=== PATIENT | male | born 1960 | race Two or more races ===

== ENCOUNTER 2018-01-30 13:37 | Outpatient (RCR) | payer MEDICARE, OTHER ==
[~2018-01-30 13:37] MED LIST: ASPIRIN-LOW81 MG ORAL; CARDURA4 MG ORAL; CITALOPRAM HBR10 M1 ORAL; COLACE100 MG/10 ORAL; COREG12.5 MG ORAL; DIABETA5 MG ORAL; EPOGEN2000 UNIT/ IJ; FERROUS SULFAT325 MG ORAL; MIRALAX17 GM PO; NEPHROVITE1 TAB ORAL; NORVASC10 MG ORAL; PRILOSEC40 MG ORAL; SIMVASTATIN20 MG ORAL; ZEMPLAR2 MCG/1 ML IV
== END 2018-02-21 | disposition home or self-care (01) ==
LOC: WCC 13:37
DX: E11.621 Type 2 diabetes mellitus with foot ulcer (principal); I12.0 Hypertensive chronic kidney disease with stage 5 chronic kidney disease or end stage renal disease; E11.22 Type 2 diabetes mellitus with diabetic chronic kidney disease; N18.6 End stage renal disease; Z79.82 Long term (current) use of aspirin
CPT/HCPCS: 15275; 82962; 87070; 87181; 87205; G0463; Q4133

== ENCOUNTER 2018-02-10 16:25 | Outpatient (CLI) | payer MEDICARE, OTHER ==
--- NOTE | 2018-02-11 12:25 | Diagnostic Imaging Report ---
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 There is chronic appearing deformity of the mid and distal fifth metatarsal. There is some chronic appearing periosteal thickening and a well-circumscribed ovoid central lucency which measures approximately 9 x 5 mm in diameter. Chronic appearing erosions are seen in the second and third metatarsal heads. No definite acute erosive changes are demonstrated. There is subtle slight irregularity of the medial cortex of the base of the second middle phalanx, although discrete fracture line is not demonstrated AP or oblique views. There is a dorsal lucency seen on the lateral view. On the oblique view, there is an angulation deformity of the second proximal phalanx, without definite fracture line. On the AP view, there is indistinctness of the cortex of the lateral base of the middle phalanx, and of the cortex of the lateral head of the proximal phalanx. There is suggestion of a small soft tissue ulcer immediately lateral to the proximal interphalangeal joint. Impression: Chronic appearing abnormality of the fifth metatarsal, likely on the basis of old osteomyelitis. Small central lucency likely represents a Yoshi's abscess Suggestion of cortical loss of the lateral aspect of the second proximal phalangeal head and second proximal phalangeal base, possible overlying ulcer. This could indicate osteomyelitis Slight deformity and irregularity of the second proximal and middle phalanges, raises concern for subtle fracture deformity of indeterminate age, possibly a pathologic fracture given the above findings. Correlate with clinical findings, consider MRI for further evaluation Postsurgical changes, as described Findings discussed by phone with Dr. Tobin at the time of interpretation
== END 2018-02-10 18:25 | disposition home or self-care (01) ==
LOC: RAD 16:25
DX: B99.9 Unspecified infectious disease (principal)

== ENCOUNTER 2018-02-19 13:33 | Outpatient (CLI) | payer MEDICARE, OTHER ==
--- NOTE | 2018-02-19 15:49 | Diagnostic Imaging Report ---
Indication: Second toe wound. Cellulitis and foot pain Technique: Right forefoot imaging utilizing multiplanar T1 fast spin-echo, proton and T2 fast spin-echo with fat saturation, and STIR. Comparison: Plain x-ray 02/10/2018 Findings: There is evidence of a cellulitis and infection involving the second toe with skin thickening, subcutaneous infiltration and edema. Bone marrow signal within the distal, middle and proximal phalanges show abnormal with abnormal low T1 and high T2 signal consistent with osteomyelitis. The osteomyelitis is probably subacute given presence of a heterogeneous intraosseous ovoid fluid focus probably Yoshi's abscess within the second proximal phalange. There is a rim of bright T1 penumbra noted along the posterior margin of the abscess. There is moderate periosteal reaction involving the second proximal phalange. There is evidence of a previous amputation at the head of the fifth metatarsal. The residual mid to distal aspect of the fifth metatarsal is abnormal with fairly marked, thickened cortical periostitis which is a sign of chronic inflammation or chronic osteomyelitis. Central to this there is a small ovoid intramedullary cystic focus measuring about 3 x 7 mm. The soft tissues surrounding the fifth metatarsal on the lateral part of the foot appears relatively normal. There is no subcutaneous edema. Amputations at the third and fourth metatarsophalangeal joints are noted. Remainder of the bones demonstrate normal signal. IMPRESSION: Evidence of acute to subacute osteomyelitis involving the proximal, middle and distal phalanges of the second ray. Small intraosseous fluid collection within the second proximal phalange likely Yoshi's abscess. Moderate second ray cellulitis. Chronic osteomyelitis involving the fifth metatarsal as described above. Status post amputations at the level of the fifth metatarsal head, third and fourth metatarsophalangeal joints.
== END 2018-02-19 15:33 | disposition home or self-care (01) ==
LOC: MRI 13:33
DX: M86.9 Osteomyelitis, unspecified (principal); Z89.421 Acquired absence of other right toe(s)

== ENCOUNTER 2018-02-23 09:35 | Outpatient (RCR) | payer MEDICARE, OTHER ==
[~2018-02-23] VITALS: Ht 167.6 cm; Wt 89.4 kg
[2018-03-12] MEDS ORDERED: Lidocaine HCl 2% Jelly 5ml Tube TOPIC ONE (12:00)
== END 2018-03-24 | disposition home or self-care (01) ==
LOC: WCC 09:35
DX: L97.514 Non-pressure chronic ulcer of other part of right foot with necrosis of bone (principal); E11.621 Type 2 diabetes mellitus with foot ulcer; Z89.421 Acquired absence of other right toe(s); E11.43 Type 2 diabetes mellitus with diabetic autonomic (poly)neuropathy; I12.0 Hypertensive chronic kidney disease with stage 5 chronic kidney disease or end stage renal disease; E11.22 Type 2 diabetes mellitus with diabetic chronic kidney disease; N18.6 End stage renal disease; Z94.4 Liver transplant status; Z79.82 Long term (current) use of aspirin
CPT/HCPCS: 82962; G0277; G0463

== ENCOUNTER 2018-02-23 15:30 | Outpatient (CLI) | payer MEDICARE, OTHER ==
--- NOTE | 2018-02-23 16:27 | Diagnostic Imaging Report ---
Indication: Cough Comparison: None 2 views of the chest obtained. Findings: Cardiomediastinal silhouette and pulmonary vascularity are within normal limits for age. The diaphragmatic contour is smooth and costophrenic angles are sharp. No pleural effusions are identified. The bones are unremarkable. Impression: No acute disease
== END 2018-02-23 17:30 | disposition home or self-care (01) ==
LOC: RAD 15:30
DX: R05 Cough (principal)
CPT/HCPCS: 71046

== ENCOUNTER 2018-04-28 10:21 | Outpatient (RCR) | payer MEDICARE, OTHER | END 2018-05-24 | disposition home or self-care (01) | LOC: WCC 10:21 | DX: Z47.81 Encounter for orthopedic aftercare following surgical amputation (principal); Z89.421 Acquired absence of other right toe(s); I12.0 Hypertensive chronic kidney disease with stage 5 chronic kidney disease or end stage renal disease; E11.22 Type 2 diabetes mellitus with diabetic chronic kidney disease; N18.6 End stage renal disease; Z94.4 Liver transplant status | CPT/HCPCS: G0463 ==

== ENCOUNTER 2018-11-13 13:10 | Emergency (ER) | payer MEDICARE, OTHER ==
[~2018-11-13] VITALS: Ht 172.7 cm; Wt 81.6 kg
--- NOTE | 2018-11-13 13:22 | NUR ---
ED Nurse Note: brought in by CHANDA from [facility]. Per pt, he had severe anxiety and dizziness after dialysis and Dr. Anderson requested to send pt for eval. A/Ox4. Pt refused to change in to gown because it will make him feel more anxious.
--- NOTE | 2018-11-13 13:28 | Emergency Room Report ---
History of Present Illness General Chief Complaint: palpitations Present Illness HPI Patient presents after dialysis reported that he was feeling palpitation sensation and nervous denies any headache denies any chest pain currently denies any back or flank pain denies any vomiting or diarrhea Patient had a full dialysis Denies any focal weakness Denies any neck pain or photophobia Patient reports that he's had several of these episodes after dialysis Allergies: Coded Allergies: No Known Allergies (Unverified , 03/16/13) Patient History Past Medical History: see triage record Pertinent Family History: none Reviewed Nursing Documentation: PMH: Agreed; PSxH: Agreed Nursing Documentation-PMH Hx Hypertension: Yes Hx Diabetes: Yes Hx Cancer: No Hx Gastrointestinal Problems: No Hx Dialysis: Yes Hx Neurological Problems: No Review of Systems All Other Systems: negative except mentioned in HPI Physical Exam 98% on ra Sp02 EP Interpretation: reviewed, normal General Appearance: well appearing, no apparent distress Head: normocephalic, atraumatic Eyes: bilateral eye PERRL, bilateral eye EOMI ENT: hearing grossly normal, normal pharynx, TMs + canals normal, uvula midline Neck: full range of motion, supple, no meningismus, no bony tend Respiratory: lungs clear, normal breath sounds, no rhonchi, no respiratory distress, no retraction, no accessory muscle use Cardiovascular #1: normal peripheral pulses, regular rate, rhythm, no edema, no gallop, no JVD, no murmur Gastrointestinal: normal bowel sounds, non tender, soft, no mass, no organomegaly, non-distended, no guarding, no hernia, no pulsatile mass, no rebound Genitourinary: no CVA tenderness Musculoskeletal: normal inspection Neurologic: oriented x3, responsive, community life director III-XII nml as tested, motor strength/ tone normal, sensory intact Psychiatric: mood/affect normal Skin: normal color, no rash, warm/dry, palpation normal, other - Dressing over the left AV shunt Lymphatic: normal inspection, no adenopathy Medical Decision Making Diagnostic Impression: Primary Impression: Palpitations ER Course Given the patient's history and presentation blood work was initiated Patient's hemoglobin and other charts are appropriate consistent with his renal failure Patient's criminal analyst was also here reports that patient had a chill type sensation With the history of osteomyolitis of his foot he had requested a CBC to be obtained Patient remains comfortable throughout his stay Patient also requesting sleeping medication at time of discharge It was discussed with him to discuss that with primary physician Labs Test 11/13/18 13:45 White Blood Count 8.5 K/UL (4.8-10.8) Red Blood Count 4.27 M/UL (4.70-6.10) Hemoglobin 14.9 G/DL (14.2-18.0) Hematocrit 43.3 % (42.0-52.0) Mean Corpuscular Volume 101 FL (80-99) Mean Corpuscular Hemoglobin 35.0 PG (27.0-31.0) Mean Corpuscular Hemoglobin Concent 34.5 G/DL (32.0-36.0) Red Cell Distribution Width 15.1 % (11.6-14.8) Platelet Count 141 K/UL (150-450) Mean Platelet Volume 9.0 FL (6.5-10.1) Neutrophils (%) (Auto) 63.2 % (45.0-75.0) Lymphocytes (%) (Auto) 23.4 % (20.0-45.0) Monocytes (%) (Auto) 9.8 % (1.0-10.0) Eosinophils (%) (Auto) 2.2 % (0.0-3.0) Basophils (%) (Auto) 1.5 % (0.0-2.0) Sodium Level 134 MMOL/L (136-145) Potassium Level 4.2 MMOL/L (3.5-5.1) Chloride Level 95 MMOL/L (98-107) Carbon Dioxide Level 27 MMOL/L (21-32) Anion Gap 12 mmol/L (5-15) Blood Urea Nitrogen 36 mg/dL (7-18) Creatinine 9.4 MG/DL (0.55-1.30) Estimat Glomerular Filtration Rate 5.8 mL/min (>60) Glucose Level 253 MG/DL (74-106) Calcium Level 9.2 MG/DL (8.5-10.1) EKG Diagnostic Results Rate: normal Rhythm: NSR ST Segments: no acute changes Status: improved Disposition: HOME, SELF-CARE Condition: Improved Additional Instructions: Patient is provided with the discharge instructions notified to follow up with primary doctor in the next 2-3 days otherwise return to the er with any worsening symptoms. Please note that this report is being documented using [employer] technology. This can lead to erroneous entry secondary to incorrect interpretation by the dictating instrument. Azra Heller DO Nov 13, 2018 13:28
[2018-11-13 13:30] VITALS: BP 151/68
[2018-11-13] MEDS ORDERED: LORazepam 1mg tab ORAL ONE (13:30)
[2018-11-13] MEDS ORDERED: SIMVASTATIN20 MG ORAL (13:37)
[2018-11-13] MEDS ORDERED: CATAPRES0.1 MG ORAL (13:40)
[2018-11-13 14:06] LABS: BASOPHILS % (AUTO) 1.5 % (0.0-2.0); EOSINOPHILS % (AUTO) 2.2 % (0.0-3.0); HEMATOCRIT 43.3 % (42.0-52.0); HEMOGLOBIN 14.9 G/DL (14.2-18.0); LYMPHOCYTES % (AUTO) 23.4 % (20.0-45.0); MEAN CORPUSCULAR VOLUME 101 FL (80-99); MONOCYTES % (AUTO) 9.8 % (1.0-10.0); NEUTROPHILS % (AUTO) 63.2 % (45.0-75.0); PLATELET COUNT 141 K/UL (150-450); RED BLOOD COUNT 4.27 M/UL (4.70-6.10); RED CELL DISTRIBUTION WIDTH 15.1 % (11.6-14.8); WHITE BLOOD COUNT 8.5 K/UL (4.8-10.8)
[2018-11-13 14:17] LABS: ANION GAP 12 mmol/L (5-15); BLOOD UREA NITROGEN 36 mg/dL (7-18); CALCIUM 9.2 MG/DL (8.5-10.1); CARBON DIOXIDE 27 MMOL/L (21-32); CHLORIDE 95 MMOL/L (98-107); CREATININE 9.4 MG/DL (0.55-1.30); POTASSIUM 4.2 MMOL/L (3.5-5.1); SODIUM 134 MMOL/L (136-145)
--- NOTE | 2018-11-13 14:20 | NUR ---
ED Nurse Note: pt resting in bed, no s/s of distress.
[2018-11-13 14:30] VITALS: BP 151/68
--- NOTE | 2018-11-13 14:30 | NUR ---
ED Nurse Note: Pt cleared by health care Provider for discharge. DC instructions/prescription was given and explained to pt and verbalized understanding of teachings. All medical deviecs such as ID band removed. Pt is AAO x4, ambulatory and left with all personal belongings. Pt left with family member.
== END 2018-11-13 14:30 | disposition home or self-care (01) ==
LOC: EMR 13:46
DX: R00.2 Palpitations (principal); I12.0 Hypertensive chronic kidney disease with stage 5 chronic kidney disease or end stage renal disease; E11.22 Type 2 diabetes mellitus with diabetic chronic kidney disease; N18.6 End stage renal disease; Z99.2 Dependence on renal dialysis
CPT/HCPCS: 36415; 80048; 85025; 93005; 99284